=== PATIENT | male | born 1990 | race Caucasian/White ===

== ENCOUNTER 2018-06-19 19:38 | Emergency (ER) | payer OTHER ==
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
--- NOTE | 2018-06-19 21:17 | XRAY Report ---
Reason: eversion injury medial swelling/pain [facility] Procedure Date: 06/19/2018 Accession Number: [id number] / [id number] Procedure: XR - Ankle 3 View RT CPT Code: FULL RESULT: EXAM: RIGHT ANKLE RADIOGRAPHY EXAM DATE: 06/19/2018 08:52 PM. CLINICAL HISTORY: Right ankle injury COMPARISON: None. TECHNIQUE: 3 views. FINDINGS: Bones: Questionable tiny chip fracture at the anterior aspect of the distal tibia on the lateral view only. No other right ankle fracture seen. Joints: Normal. No effusion. No subluxations. The ankle mortise is normally aligned. Soft Tissues: Normal. No soft tissue swelling. IMPRESSION: Questionable tiny chip fracture at the anterior aspect of the distal tibia on the lateral view only. No other right ankle fracture seen. RADIA
[2018-06-19 21:39] VITALS: BP 154/74
== END 2018-06-19 21:39 | disposition home or self-care (01) ==
LOC: ED 19:38
DX: S82.301A Unspecified fracture of lower end of right tibia, initial encounter for closed fracture (principal); S93.401A Sprain of unspecified ligament of right ankle, initial encounter; V28.0XXA Motorcycle driver injured in noncollision transport accident in nontraffic accident, initial encounter; Y92.830 Public park as the place of occurrence of the external cause
CPT/HCPCS: 29515; 99283

== ENCOUNTER 2018-09-05 22:04 | Emergency (ER) | payer OTHER ==
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
--- NOTE | 2018-09-05 22:59 | XRAY Report ---
Reason: left wrist injury, pain tenderness Procedure Date: 09/05/2018 Accession Number: [id number] / [id number] Procedure: XR - Wrist 4 View LT CPT Code: FULL RESULT: EXAM: LEFT WRIST RADIOGRAPHY EXAM DATE: 09/05/2018 10:47 PM. CLINICAL HISTORY: Left wrist injury, pain tenderness. COMPARISON: None. TECHNIQUE: 4 views. FINDINGS: Bones: Scaphoid waist fracture. Joints: No dislocation seen. Joint spaces appear preserved. Soft Tissues: Soft tissue swelling. IMPRESSION: 1. Scaphoid waist fracture. RADIA
[2018-09-05] MEDS ORDERED: HYDROcod/ACET 5/325 Prepack 4 PO STA (23:39)
[2018-09-06 00:02] VITALS: BP 161/97
== END 2018-09-06 00:02 | disposition home or self-care (01) ==
LOC: ED 22:04
DX: S62.025A Nondisplaced fracture of middle third of navicular [scaphoid] bone of left wrist, initial encounter for closed fracture (principal); V86.59XA Driver of other special all-terrain or other off-road motor vehicle injured in nontraffic accident, initial encounter; Y93.89 Activity, other specified; Y92.89 Other specified places as the place of occurrence of the external cause
CPT/HCPCS: 29125; 99283

== ENCOUNTER 2018-12-14 08:21 | Outpatient (CLI) | payer OTHER ==
--- NOTE | 2018-12-14 10:10 | CT Report ---
Reason: SCAPHOID FRACTURE Procedure Date: 12/14/2018 Accession Number: [id number] / [id number] Procedure: CT - UPPER EXTREMITY WO - LT CPT Code: FULL RESULT: EXAM: LEFT WRIST CT WITHOUT CONTRAST EXAM DATE: 12/14/2018 09:04 AM. CLINICAL HISTORY: Scaphoid fracture. COMPARISON: WRIST 4 VIEW LT 09/05/2018 10:27 PM images and report from [facility]. TECHNIQUE: Thin-section axial images were acquired of the wrist without contrast. Post-processing: Coronal and sagittal reformats. Other: None. In accordance with CT protocol optimization, one or more of the following dose reduction techniques were utilized for this exam: automated exposure control, adjustment of mA and/or KV based on patient size, or use of iterative reconstructive technique. FINDINGS: Bones: Bones overall are osteopenic. Fracture of the scaphoid waist shows bony bridging over about 80% of the area of the fracture. On the sagittals, there is a mild "humpback" deformity. Slight increased density of the proximal scaphoid without articular surface collapse. Series 9 image 15. Joints: Normal. No large elbow effusion. No calcified loose bodies. Musculature: Normal. No fatty atrophy. Other: None. IMPRESSION: 1. Scaphoid waist fracture shows bony bridging over about 80% of the area of the fracture. There is a mild "humpback" deformity on the sagittals. This is related to mild volar angulation at the distal portion of the fracture. 2. Some increased density in the proximal scaphoid without articular surface collapse, probably reflecting some bone remodeling. No CT evidence for AVN. RADIA
== END 2018-12-14 08:22 | disposition home or self-care (01) ==
LOC: DI 08:21
PROVIDERS: ATTEND Orthopaedic Surgery
DX: S62.002D Unspecified fracture of navicular [scaphoid] bone of left wrist, subsequent encounter for fracture with routine healing (principal)

== ENCOUNTER 2019-02-04 09:07 | Outpatient (CLI) | payer OTHER ==
[2019-02-04 13:09] LABS: BASOPHILS # (AUTO) 0.1 10^3/uL (0.0-0.1); BASOPHILS % (AUTO) 1.2 %; EOSINOPHILS # (AUTO) 0.2 10^3/uL (0.0-0.7); EOSINOPHILS % (AUTO) 5.2 %; HGB - HEMOGLOBIN 14.8 g/dL (14.0-18.0); LYMPHOCYTES # (AUTO) 1.5 10^3/uL (1.5-3.5); LYMPHOCYTES % (AUTO) 36.2 %; MEAN CORPUSCULAR HEMOGLOBIN 27.8 pg (27.0-31.0); MEAN CORPUSCULAR HGB CONC 32.6 g/dL (32.0-36.0); MEAN CORPUSCULAR VOLUME 85.2 fL (80.0-94.0); MEAN PLATELET VOLUME 10.3 fL (7.4-11.4); MONOCYTES # (AUTO) 0.3 10^3/uL (0.0-1.0); MONOCYTES % (AUTO) 7.7 %; NEUTROPHILS % (AUTO) 49.5 %; PLT - PLATELET COUNT 306 10^3/uL (130-450); RED BLOOD COUNT 5.33 10^6/uL (4.70-6.10); RED CELL DISTRIBUTION WIDTH 12.6 % (12.0-15.0)
[2019-02-04 13:16] LABS: ALBUMIN 4.9 g/dL (3.2-5.5); ALBUMIN/GLOBULIN RATIO 1.6 (1.0-2.2); ALKALINE PHOSPHATASE 73 IU/L (42-121); ALT ALANINE AMINOTRANSFERASE 24 IU/L (10-60); AST ASPARTATE AMINOTRANSFERASE 23 IU/L (10-42); BILIRUBIN,TOTAL 0.9 mg/dL (0.2-1.0); BUN - BLOOD UREA NITROGEN 10 mg/dL (6-20); CALCIUM 9.7 mg/dL (8.5-10.3); CARBON DIOXIDE - CO2 30 mmol/L (21-32); CHLORIDE 100 mmol/L (101-111); CHOL/HDL RATIO 8.3 (<5.0); CHOLESTEROL 322 mg/dL; GFR - MDRD 88 (>89); GLUCOSE 83 mg/dL (70-100); HDL CHOLESTEROL 39 mg/dL; LDL CHOLESTEROL,CALCULATED 264 mg/dL; LDL/HDL RATIO 6.8 (<3.6); SODIUM 139 mmol/L (135-145); TOTAL PROTEIN 7.9 g/dL (6.7-8.2); VLDL CHOLESTEROL 19 mg/dL
[2019-02-04 13:35] LABS: HB2 TOTAL 15.1 g/dL; HEMOGLOBIN A1C 0.58 g/dL; HEMOGLOBIN A1C % 5.7 % (4.6-6.2)
== END 2019-02-04 23:59 ==
LOC: LAB.WCP 09:07
PROVIDERS: ATTEND Physician Assistant
DX: Z13.220 Encounter for screening for lipoid disorders (principal); R03.0 Elevated blood-pressure reading, without diagnosis of hypertension; Z13.1 Encounter for screening for diabetes mellitus
CPT/HCPCS: 36415; 80053; 80061; 83036; 83721; 84443; 85025

== ENCOUNTER 2020-01-16 13:38 | Emergency (ER) | payer BC, OTHER ==
--- NOTE | 2020-01-16 14:34 | ED Physician Documentation ---
PD HPI CHEST PAIN - Chief complaint Chief Complaint: Trauma Ch/Bk - History obtained from History obtained from: Patient - History of Present Illness Timing - onset: Yesterday Timing - onset during: Exertion (playing soccer and another player ran into him forcefully left lateral ribs. Pain abruptly there and has continued to hurt with movement and breathing. Some dyspnea as well.) Timing - duration: Days (2) Timing - details: Abrupt onset, Still present Quality: Sharp, Pain. No: Pressure, Tightness Location: Left chest Radiation: No: Neck, Back Worsened by: Exertion, Inspiration, Movement Associated symptoms: No: Shortness of air, Nausea, Feeling faint / dizzy, Palpitations Similar symptoms before: Has not had sx before Review of Systems Constitutional: denies: Fever, Chills Nose: denies: Rhinorrhea / runny nose, Congestion Throat: denies: Sore throat Cardiac: reports: Chest pain / pressure. denies: Palpitations, Pedal edema, Calf pain Respiratory: reports: Dyspnea. denies: Cough, Wheezing Skin: denies: Abrasion (s), Laceration (s) Neurologic: denies: Focal weakness, Numbness, Altered mental status, Headache, Head injury PD PAST MEDICAL HISTORY - Past Medical History Past Medical History: No Cardiovascular: None Respiratory: None Endocrine/Autoimmune: None - Past Surgical History Past Surgical History: Yes - Present Medications Home Medications: Ambulatory Orders Medication Instructions Recorded Confirmed Hydrocodone/Acetaminophen 1 - 2 each PO Q6H PRN #14 tablet 09/05/18 [Hydrocodon-Acetaminophen 5-325] - Allergies Allergies/Adverse Reactions: Allergies Allergy/AdvReac Type Severity Reaction Status Date / Time No Known Drug Allergies Allergy Verified 01/16/20 13:49 - Social History Does the pt smoke?: No Smoking Status: Never smoker Does the pt drink ETOH?: Yes Does the pt have substance abuse?: No - POLST Patient has POLST: No PD ED PE NORMAL - Vitals Vital signs reviewed: Yes - General General: Alert and oriented X 3, No acute distress, Well developed/nourished - HEENT HEENT: Atraumatic, PERRL, EOMI - Neck Neck: Supple, no meningeal sign, No adenopathy - Cardiac Cardiac: RRR, No murmur - Respiratory Respiratory: Clear bilaterally, Other (left lateral chest wall with tenderness without crepitance nor deformity about level of ribs 6-9.) - Abdomen Abdomen: Soft, Non tender - Back Back: No CVA TTP, No spinal TTP - Derm Derm: Normal color, Warm and dry - Neuro Neuro: Alert and oriented X 3, No motor deficit, Normal speech Results - Vitals Vitals: Vital Signs - 24 hr 01/16/20 01/16/20 13:49 15:49 Temperature 37.2 C 37.2 C Heart Rate 66 62 Respiratory 16 16 Rate Blood Pressure 151/81 H 130/80 O2 Saturation 100 100 Oxygen O2 Source Room air - Rads (name of study) chwt with ribs Radiology: Prelim report reviewed (no PTX, effusion nor rib fractures.), See rad report PD MEDICAL DECISION MAKING - ED course Complexity details: considered differential, d/w patient Departure - Departure Disposition: 01 Home, Self Care Clinical Impression: Chest wall contusion Qualifiers: Encounter type: initial encounter Laterality: left Qualified Code(s): S20.212A - Contusion of left front wall of thorax, initial encounter Condition: Stable Record reviewed to determine appropriate education?: Yes Instructions: ED Contusion Chest Wall Follow-Up: Ashlie Garcia PA [Primary Care Provider] - Comments: Your x-ray appears normal without any signs of rib fracture and or lung injury. I presume you will be sore in the chest wall for several days to week from the injury. Consider anti-inflammatories such as ibuprofen or naproxen and add Tylenol if needed for pain. Activity as tolerated. Discharge Date/Time: 01/16/20 15:49
--- NOTE | 2020-01-16 15:30 | XRAY Report ---
PROCEDURE: Ribs w/PA Chest LT INDICATIONS: struck left chest yesterday; pain with move/breath TECHNIQUE: 2 views of the left ribs were acquired, along with a single view chest. COMPARISON: None. FINDINGS: Surgical changes and devices: None. Bones and chest wall: No acute displaced rib fractures. No suspicious bony lesions. Overlying soft tissues appear unremarkable. Lungs and pleura: No pleural effusions or pneumothorax. Lungs appear clear. Mediastinum: Mediastinal contours appear normal. Heart size is normal. IMPRESSION: No acute displaced rib fracture is identified. There is no pleural effusion or pneumothorax. Reviewed by: Kevin Mckoy MD on 01/16/2020 2:29 PM [facility] Approved by: Kevin Mckoy MD on 01/16/2020 2:29 PM [facility] Station ID: [id number]
[2020-01-16 15:50] VITALS: BP 130/80
== END 2020-01-16 15:49 | disposition home or self-care (01) ==
LOC: ED 13:38
DX: S20.212A Contusion of left front wall of thorax, initial encounter (principal); W50.0XXA Accidental hit or strike by another person, initial encounter; Y93.66 Activity, soccer
CPT/HCPCS: 99283; 99284

== ENCOUNTER 2020-09-17 17:09 | Emergency (ER) | payer BC, OTHER ==
[2020-09-17 17:24] VITALS: BP 146/84
[2020-09-17] MEDS ORDERED: IBUPROFEN 800 MG TABLET PO STA (17:34)
--- NOTE | 2020-09-17 17:35 | ED Physician Documentation ---
PD HPI UPPER EXT INJURY - Stated complaint Stated Complaint: RT THIGH INJURY - Chief complaint Chief Complaint: Trauma Ext - History obtained from History obtained from: Patient - Additonal information Additional information: 8 days ago he was kicked in the back of the right hamstring while playing soccer. It got more painful after a few days and at this point he has pain radiating from the hamstring to the front of the knee. It is much worse after rest or sedentary periods and is better after motion. Review of Systems Constitutional: reports: Reviewed and negative Throat: reports: Reviewed and negative Cardiac: reports: Reviewed and negative Respiratory: reports: Reviewed and negative PD PAST MEDICAL HISTORY - Past Medical History Past Medical History: No Cardiovascular: None Respiratory: None Endocrine/Autoimmune: None - Past Surgical History Past Surgical History: Yes - Present Medications Home Medications: Ambulatory Orders Medication Instructions Recorded Confirmed Ibuprofen [Motrin] 800 mg PO Q8H PRN #30 tablet 09/17/20 - Allergies Allergies/Adverse Reactions: Allergies Allergy/AdvReac Type Severity Reaction Status Date / Time No Known Drug Allergies Allergy Verified 09/17/20 17:24 - Social History Does the pt smoke?: No Smoking Status: Never smoker Does the pt drink ETOH?: Yes Does the pt have substance abuse?: No - Immunizations Immunizations are current?: Yes - POLST Patient has POLST: No PD ED PE NORMAL - Vitals Vital signs reviewed: Yes - General General: Alert and oriented X 3, No acute distress - Extremities Extremities: Other (Some tenderness of the right hamstring, maybe a little firmness to. Nothing to suggest compartment syndrome. Full range of motion. Right knee is nontender with intact ligamentous testing.) - Neuro Neuro: Alert and oriented X 3, Normal speech - Psych Psych: Normal mood, Normal affect Results - Vitals Vitals: Vital Signs - 24 hr 09/17/20 17:20 Temperature 37.4 C Heart Rate 63 Respiratory 16 Rate Blood Pressure 146/84 H O2 Saturation 100 Oxygen O2 Source Room air - Rads (name of study) R femur XR Radiology: EMP read contemporaneously (NAD) Departure - Departure Disposition: 01 Home, Self Care Clinical Impression: Contusion of right leg Qualifiers: Encounter type: initial encounter Qualified Code(s): S80.11XA - Contusion of right lower leg, initial encounter Condition: Good Record reviewed to determine appropriate education?: Yes Instructions: ED Contusion Soft Tissue Prescriptions: Ibuprofen [Motrin] 800 mg PO Q8H PRN #30 tablet PRN Reason: PAIN &/OR FEVER Comments: Recheck with your physician in 1 week if not improving, return for new or worsening symptoms. Discharge Date/Time: 09/17/20 18:05
--- NOTE | 2020-09-18 14:31 | XRAY Report ---
PROCEDURE: Femur 2V RT INDICATIONS: leg injury TECHNIQUE: 2 views of the femur were acquired. COMPARISON: None. FINDINGS: Bones: No fractures or dislocations. No suspicious bony lesions. Soft tissues: No suspicious soft tissue calcifications or masses. IMPRESSION: No acute fracture. No osseous lesion. If symptoms and/or clinical suspicion for pathology continue, f urther assessment with repeat plain films, or advanced imaging (e.g., CT, MRI, or bone scan) is recom mended for further assessment. Reviewed by: Audrey Chung MD on 09/18/2020 2:29 PM PDT Approved by: Audrey Chung MD on 09/18/2020 2:29 PM PDT Station ID: [id number]
== END 2020-09-17 18:05 | disposition home or self-care (01) ==
LOC: ED 17:09
DX: S70.11XA Contusion of right thigh, initial encounter (principal); W50.0XXA Accidental hit or strike by another person, initial encounter; Y93.66 Activity, soccer
CPT/HCPCS: 73552; 99282; 99283; A9270

== ENCOUNTER 2021-03-21 08:49 | Outpatient (CLI) | payer OTHER ==
[2021-03-21 13:06] LABS: ALBUMIN 4.9 g/dL (3.2-5.5); ALBUMIN/GLOBULIN RATIO 1.4 (1.0-2.2); ALKALINE PHOSPHATASE 69 IU/L (42-121); ALT ALANINE AMINOTRANSFERASE 37 IU/L (10-60); AST ASPARTATE AMINOTRANSFERASE 30 IU/L (10-42); BILIRUBIN,TOTAL 0.9 mg/dL (0.2-1.0); BUN - BLOOD UREA NITROGEN 14 mg/dL (6-20); CALCIUM 9.8 mg/dL (8.5-10.3); CARBON DIOXIDE - CO2 30 mmol/L (21-32); CHLORIDE 97 mmol/L (101-111); CHOLESTEROL 375 mg/dL; CREATININE 0.9 mg/dL (0.6-1.2); GFR - MDRD 98 (>89); GLUCOSE 95 mg/dL (70-100); HDL CHOLESTEROL 47 mg/dL; LDL CHOLESTEROL,CALCULATED 291 mg/dL; LDL/HDL RATIO 6.2 (<3.6); POTASSIUM 4.1 mmol/L (3.5-5.0); SODIUM 135 mmol/L (135-145); TOTAL PROTEIN 8.3 g/dL (6.7-8.2); TRIGLYCERIDES 185 mg/dL; VLDL CHOLESTEROL 37 mg/dL
== END 2021-03-21 08:50 | disposition home or self-care (01) ==
LOC: LAB.N 08:49
PROVIDERS: ATTEND Family Medicine
DX: E78.49 Other hyperlipidemia (principal)
CPT/HCPCS: 36415; 80053; 80061; 83721

== ENCOUNTER 2021-03-21 09:07 | Outpatient (CLI) | payer OTHER ==
--- NOTE | 2021-03-21 14:08 | XRAY Report ---
PROCEDURE: Lumbar Spine Complete INDICATIONS: SOMATIC DYSFUNCTION, LUMBAR TECHNIQUE: 4 views of the lumbar spine were acquired. COMPARISON: None. FINDINGS: L-SPINE: No acute displaced fracture or malalignment. The vertebral body heights are maintained. The disc space heights are maintained. No appreciable pars defect. The sacroiliac joints appear patent. SOFT TISSUES: No focal abnormality. IMPRESSION: 1.No acute osseous abnormality of the lumbar spine. Reviewed by: Scotty Polanco MD on 03/21/2021 2:06 PM [facility] Approved by: Scotty Polanco MD on 03/21/2021 2:06 PM [facility] Station ID: [id number]
== END 2021-03-21 09:08 | disposition home or self-care (01) ==
LOC: DI.N 09:07
PROVIDERS: ATTEND Family Medicine
DX: M99.03 Segmental and somatic dysfunction of lumbar region (principal); M54.50 Low back pain, unspecified; G89.29 Other chronic pain; E78.49 Other hyperlipidemia
CPT/HCPCS: 36415; 80053; 80061; 83721

== ENCOUNTER 2022-12-05 09:30 | Outpatient (CLI) | payer OTHER ==
[2022-12-05 12:02] LABS: BASOPHILS % (AUTO) 0.5 %; EOSINOPHILS # (AUTO) 0.1 10^3/uL (0.0-0.7); EOSINOPHILS % (AUTO) 1.4 %; HCT - HEMATOCRIT 43.8 % (42.0-52.0); HGB - HEMOGLOBIN 14.5 g/dL (14.0-18.0); LYMPHOCYTES # (AUTO) 1.9 10^3/uL (1.5-3.5); LYMPHOCYTES % (AUTO) 25.5 %; MEAN CORPUSCULAR HEMOGLOBIN 27.8 pg (27.0-31.0); MEAN CORPUSCULAR HGB CONC 33.1 g/dL (32.0-36.0); MEAN CORPUSCULAR VOLUME 84.1 fL (80.0-94.0); MEAN PLATELET VOLUME 10.2 fL (7.4-11.4); MONOCYTES # (AUTO) 0.6 10^3/uL (0.0-1.0); MONOCYTES % (AUTO) 7.4 %; NEUTROPHILS # (AUTO) 4.9 10^3/uL (1.5-6.6); NEUTROPHILS % (AUTO) 64.9 %; PLT - PLATELET COUNT 254 10^3/uL (130-450); RED BLOOD COUNT 5.21 10^6/uL (4.70-6.10); RED CELL DISTRIBUTION WIDTH 12.9 % (12.0-15.0); WHITE BLOOD COUNT 7.6 x10^3/uL (4.8-10.8)
[2022-12-05 12:26] LABS: ALBUMIN 4.8 g/dL (3.2-5.5); ALBUMIN/GLOBULIN RATIO 1.8 (1.0-2.2); ALKALINE PHOSPHATASE 70 IU/L (42-121); ALT ALANINE AMINOTRANSFERASE 18 IU/L (10-60); AST ASPARTATE AMINOTRANSFERASE 17 IU/L (10-42); BILIRUBIN,TOTAL 0.8 mg/dL (0.2-1.0); BUN - BLOOD UREA NITROGEN 12 mg/dL (6-20); CALCIUM 9.8 mg/dL (8.5-10.3); CARBON DIOXIDE - CO2 29 mmol/L (21-32); CHLORIDE 103 mmol/L (101-111); CHOL/HDL RATIO 7.2 (<5.0); CHOLESTEROL 301 mg/dL; CREATININE 0.9 mg/dL (0.6-1.3); GFR - MDRD 97 (>89); GLUCOSE 88 mg/dL (74-104); HDL CHOLESTEROL 42 mg/dL; LDL CHOLESTEROL,CALCULATED 230 mg/dL; LDL/HDL RATIO 5.5 (<3.6); POTASSIUM 4.1 mmol/L (3.5-4.5); SODIUM 139 mmol/L (135-145); TOTAL PROTEIN 7.4 g/dL (6.4-8.9); TRIGLYCERIDES 147 mg/dL (48-352); VLDL CHOLESTEROL 29 mg/dL
== END 2022-12-05 09:31 | disposition home or self-care (01) ==
LOC: LAB.N 09:30
PROVIDERS: ATTEND Physician Assistant
DX: E78.49 Other hyperlipidemia (principal); R03.0 Elevated blood-pressure reading, without diagnosis of hypertension
CPT/HCPCS: 36415; 80053; 80061; 83721; 85025